=== PATIENT | male | born 1980 | race Caucasian/White ===

== ENCOUNTER 2020-08-19 19:45 | Emergency (ER) | payer OTHER ==
[2020-08-19] MEDS ORDERED: XYLOCAINE 100 MG/5 ML ABBOJECT IV ONE ×2 (20:17→20:32)
[2020-08-19 20:21] LABS: Absolute Neutrophil Ct (ANC) 7.84 (1.4-6.9); BASOPHIL % 0.5 % (0.0-0.4); Basophil (Absolute #) 0.06 (0-0.4); Eosinophil % 0.6 % (0.00-5.0); Eosinophil (Absolute #) 0.08 (0-0.5); Hematocrit 45.4 % (42-50); Hemoglobin 15.4 gm/dl (12.5-18.0); Lymphocyte (Absolute #) 3.54 (1.0-4.6); Lymphocytes % 28.4 % (24.0-44.0); Mean Cell Volume 94.4 fl (78-100); Mean Corpuscular Hgb Concent. 33.9 g/dl (32-36); Mean Platelet Volume 9.6 fl (7.5-11.0); Monocyte (Absolute #) 0.93 (0.0-1.3); Monocytes % 7.5 % (0.0-12.0); Platelet Count 369 K/mm3 (150-450); Red Blood Count 4.81 M/mm3 (4.1-5.6); Red Cell Distribution Width 11.7 % (11.5-14.0); White Blood Count 12.5 K/mm3 (4.0-10.5)
[2020-08-19] MEDS ORDERED: Adenocard IV 6 MG/2 ML IV ONE ×4 (20:25→20:38)
[2020-08-19 20:46] LABS: ALBUMIN 4.4 g/dL (3.5-5.0); ALKALINE PHOSPHATASE 85 U/L (38-126); ANION GAP 10.2 MEQ/L (5-15); BLOOD UREA NITROGEN 22 mg/dL (9-20); CHLORIDE 96 mmol/L (98-107); Calcium 9.3 mg/dL (8.4-10.2); Carbon Dioxide 33 mmol/L (22-30); Creatinine 1 1.13 mg/dL (0.66-1.25); EST GLOMERULAR FILTRATION RATE > 60.0 ML/MIN; ETHYL ALCOHOL < 10 mg/dL (0-10); Glucose 115 mg/dL (74-106); MAGNESIUM 2.1 mg/dL (1.6-2.3); NT PRO BNP 19.5 pg/mL (0-450); Potassium 3.1 mmol/L (3.5-5.1); SGOT/AST 24 U/L (17-59); SGPT/ALT 16 U/L (0-50); SODIUM 137 mmol/L (137-145); Total Protein 7.5 g/dL (6.3-8.2)
--- NOTE | 2020-08-19 21:53 | ERPHSYRPT ---
- History of Present Illness Time Seen by Provider: 08/19/20 20:10 Historian: patient Exam Limitations: no limitations Patient Subjective Stated Complaint: chest pressure radiating to back x 30 mins Triage Nursing Assessment: Chest presssure radiating to back x 30 mins. Rated 6/10. EKG shows sinus tach at a rate of 180. Skin PWD, no diaphesis noted. BP 131/80. Physician History: Patient is a 60-year-old male presents to our ED with complaints of chest pressure rating to his back. Symptoms started prior to arrival. Pain rated 6 out of 10. No associated nausea vomiting or diaphoresis. Patient denies history of the same. No trauma. No fever. Patient denies Covid exposure. Patient has a history of hypertension. Otherwise no other past medical history. Timing/Duration: today Activities at Onset: none Quality: pressure Location: substernal Chest Pain Radiation: back Severity of Pain-Max: moderate Severity of Pain-Current: mild Modifying Factors: Improves With: nothing Associated Symptoms: denies symptoms Prior Chest Pain/Cardiac Workup: no prior chest pain Nitro Today/Relief: no nitro taken today Aspirin Treatment Today: no aspirin today Allergies/Adverse Reactions: No Known Drug Allergies Allergy (Unverified 08/19/20 20:12) Hx Tetanus, Diphtheria Vaccination/Date Given: No Hx Influenza Vaccination/Date Given: No Hx Pneumococcal Vaccination/Date Given: No Travel Risk - International Travel Have you traveled outside of the country in past 3 weeks: No - Review of Systems Constitutional: No Symptoms, No Fever, No Chills Eyes: No Symptoms Ears, Nose, & Throat: No Symptoms Respiratory: No Symptoms, No Cough, No Dyspnea Cardiac: No Symptoms, No Chest Pain, No Edema, No Syncope Abdominal/Gastrointestinal: No Symptoms, No Abdominal Pain, No Nausea, No Vomiting, No Diarrhea Genitourinary Symptoms: No Symptoms, No Dysuria Musculoskeletal: No Symptoms, No Back Pain, No Neck Pain Skin: No Symptoms, No Rash Neurological: No Symptoms, No Dizziness, No Focal Weakness, No Sensory Changes Psychological: No Symptoms Endocrine: No Symptoms Hematologic/Lymphatic: No Symptoms Immunological/Allergic: No Symptoms All Other Systems: Reviewed and Negative - Past Medical History Pertinent Past Medical History: No - Past Surgical History Past Surgical History: No - Social History Smoking Status: Never smoker Exposure to second hand smoke: No Drug Use: none Patient Lives Alone: No - Nursing Vital Signs Nursing Vital Signs: Initial Vital Signs Temperature 97.8 F 08/19/20 20:04 Pulse Rate 180 H 08/19/20 20:04 Respiratory Rate 20 08/19/20 20:04 Blood Pressure 131/70 08/19/20 20:04 O2 Sat by Pulse Oximetry 100 08/19/20 20:04 Pain Scale Pain Intensity 0 - Physical Exam General Appearance: no apparent distress, alert Eye Exam: PERRL/EOMI, eyes nml inspection Ears, Nose, Throat Exam: normal ENT inspection, moist mucous membranes Neck Exam: normal inspection, non-tender, supple, full range of motion Respiratory Exam: normal breath sounds, lungs clear, No respiratory distress Cardiovascular Exam: other (EKG reveals what appears to be a wide-complex tachycardia at a rate of 180.) Gastrointestinal/Abdomen Exam: soft, No tenderness, No mass Back Exam: normal inspection, No CVA tenderness, No vertebral tenderness Extremity Exam: normal inspection, normal range of motion Neurologic Exam: alert, oriented x 3, cooperative, normal mood/affect, sensation nml, No motor deficits Skin Exam: normal color, warm, dry SpO2 Interpretation: normal SpO2: 100 O2 Delivery: Room Air - Course Nursing assessment & vital signs reviewed: Yes EKG Interpreted by Me: RATE (180), Sinus Tach, NORMAL AXIS, NORMAL INTERVALS (wide complex tachycardia) - Radiology Exams Chest X-ray Interpretation: Teleradiologist Report (Lungs are clear. Bony thorax intact. Negative chest x-ray.) Ordered Tests: Active Orders 24 hr Category Date Time Status Director Of Public Safety STAT Care 08/19/20 20:02 Active EKG-ER Only STAT Care 08/19/20 20:02 Active IV Insertion STAT Care 08/19/20 20:02 Active Pulse Oximetry (ED) STAT Care 08/19/20 20:02 Active CHEST 1 VIEW (PORTABLE) Stat Exams 08/19/20 20:02 Taken CBC W DIFF Stat Lab 08/19/20 20:15 Completed CMP Stat Lab 08/19/20 20:15 Completed D-DIMER QUANTITATIVE Stat Lab 08/19/20 20:15 Completed ETHYL ALCOHOL Stat Lab 08/19/20 20:15 Completed MAGNESIUM Stat Lab 08/19/20 20:15 Completed NT PRO BNP Stat Lab 08/19/20 20:15 Completed TROPONIN Q3H Lab 08/19/20 20:15 Completed TROPONIN Q3H Lab 08/19/20 23:15 Ordered TROPONIN Q3H Lab 08/20/20 02:15 Ordered TROPONIN Q3H Lab 08/20/20 05:15 Ordered TROPONIN Q3H Lab 08/20/20 08:15 Ordered TSH [TSH, 3RD Generation] Stat Lab 08/19/20 20:15 Completed UA W/RFX UR CULTURE Stat Lab 08/19/20 20:02 Ordered Urine Triage Profile Stat Lab 08/19/20 20:02 Ordered Medication Summary Discontinued Medications Generic Name Dose Route Start Last Admin Trade Name Freq PRN Reason Stop Dose Admin Adenosine Confirm 08/19/20 20:35 Adenocard Iv 6 Mg/2 Ml Administered 08/19/20 20:36 Dose 6 mg IV .STK-MED ONE Adenosine Confirm 08/19/20 20:38 Adenocard Iv 6 Mg/2 Ml Administered 08/19/20 20:39 Dose 12 mg IV .STK-MED ONE Lidocaine HCl 50 mg 08/19/20 20:17 Xylocaine 100 Mg/5 Ml Abboject IV 08/19/20 20:18 STAT ONE Lab/Rad Data: Laboratory Result Diagrams 08/19/20 20:15 08/19/20 20:15 Laboratory Results 08/19/20 08/19/20 08/19/20 Range/Units 20:15 20:15 20:15 WBC (4.0-10.5) K/mm3 RBC (4.1-5.6) M/mm3 Hgb (12.5-18.0) gm/dl Hct (42-50) % MCV (78-100) fl MCH (26-32) pg MCHC (32-36) g/dl RDW (11.5-14.0) % Plt Count (150-450) K/mm3 MPV (7.5-11.0) fl Gran % (36.0-66.0) % Eos # (Auto) (0-0.5) Absolute Lymphs (auto) (1.0-4.6) Absolute Monos (auto) (0.0-1.3) Lymphocytes % (24.0-44.0) % Monocytes % (0.0-12.0) % Eosinophils % (0.00-5.0) % Basophils % (0.0-0.4) % Absolute Granulocytes (1.4-6.9) Basophils # (0-0.4) D-Dimer < 215 L (215-500) ng/mL Sodium (137-145) mmol/L Potassium (3.5-5.1) mmol/L Chloride (98-107) mmol/L Carbon Dioxide (22-30) mmol/L Anion Gap (5-15) MEQ/L BUN (9-20) mg/dL Creatinine (0.66-1.25) mg/dL Estimated GFR ML/MIN Glucose (74-106) mg/dL Calcium (8.4-10.2) mg/dL Magnesium (1.6-2.3) mg/dL Total Bilirubin (0.2-1.3) mg/dL AST (17-59) U/L ALT (0-50) U/L Alkaline Phosphatase (38-126) U/L Troponin I < 0.012 (0.000-0.034) ng/mL NT-Pro-B Natriuret Pep (0-450) pg/mL Serum Total Protein (6.3-8.2) g/dL Albumin (3.5-5.0) g/dL TSH 3rd Generation 6.230 H (0.47-4.68) mIU/L Ethyl Alcohol (0-10) mg/dL 08/19/20 08/19/20 Range/Units 20:15 20:15 WBC 12.5 H (4.0-10.5) K/mm3 RBC 4.81 (4.1-5.6) M/mm3 Hgb 15.4 (12.5-18.0) gm/dl Hct 45.4 (42-50) % MCV 94.4 (78-100) fl MCH 32.0 (26-32) pg MCHC 33.9 (32-36) g/dl RDW 11.7 (11.5-14.0) % Plt Count 369 (150-450) K/mm3 MPV 9.6 (7.5-11.0) fl Gran % 63.0 (36.0-66.0) % Eos # (Auto) 0.08 (0-0.5) Absolute Lymphs (auto) 3.54 (1.0-4.6) Absolute Monos (auto) 0.93 (0.0-1.3) Lymphocytes % 28.4 (24.0-44.0) % Monocytes % 7.5 (0.0-12.0) % Eosinophils % 0.6 (0.00-5.0) % Basophils % 0.5 (0.0-0.4) % Absolute Granulocytes 7.84 H (1.4-6.9) Basophils # 0.06 (0-0.4) D-Dimer (215-500) ng/mL Sodium 137 (137-145) mmol/L Potassium 3.1 L (3.5-5.1) mmol/L Chloride 96 L (98-107) mmol/L Carbon Dioxide 33 H (22-30) mmol/L Anion Gap 10.2 (5-15) MEQ/L BUN 22 H (9-20) mg/dL Creatinine 1.13 (0.66-1.25) mg/dL Estimated GFR > 60.0 ML/MIN Glucose 115 H (74-106) mg/dL Calcium 9.3 (8.4-10.2) mg/dL Magnesium 2.1 (1.6-2.3) mg/dL Total Bilirubin 0.40 (0.2-1.3) mg/dL AST 24 (17-59) U/L ALT 16 (0-50) U/L Alkaline Phosphatase 85 (38-126) U/L Troponin I (0.000-0.034) ng/mL NT-Pro-B Natriuret Pep 19.5 (0-450) pg/mL Serum Total Protein 7.5 (6.3-8.2) g/dL Albumin 4.4 (3.5-5.0) g/dL TSH 3rd Generation (0.47-4.68) mIU/L Ethyl Alcohol < 10 (0-10) mg/dL - Progress Progress: improved Air Movement: good Progress Note: 08/19/20 21:59 Initial EKG revealed a wide-complex tachycardia. Case discussed with Dr. Hoover who reviewed the EKG. He initially advised 50 mg of lidocaine. However this did not improve patient's heart rate. He then advised adenosine. 6 mg administered. No improvement. 12 mg yielded cardioversion. Heart rate down to 106. Repeat EKG revealed diffuse ST segment depression. Patient did not have any chest pain. Troponin normal. Potassium 3.1. Potassium replaced. TSH reveals hypothyroidism. Dr. Hoover advised transfer to facility with electro physiology. Case discussed with of cardiology who accepted transfer. Dr. Gonzalez hospitalist accepted transfer. Plan of care discussed with patient. He agrees to transfer to [facility] for further evaluation and treatment. Patient reassessed. Patient stable. No complaints at this time. We will continue to monitor. Blood Culture(s) Obtained: No Antibiotics given: No Counseled pt/family regarding: lab results, diagnosis, need for follow-up, rad results - Departure Departure Disposition: Transfer Clinical Impression: SVT (supraventricular tachycardia), Hypokalemia, Hypothyroidism Condition: Stable Critical Care Time: No Referrals: STACIE DALAL MD [Primary Care Provider] -
[2020-08-19] MEDS ORDERED: Klor Con 10 MEQ PO ONE ×2 (21:58→22:09)
[2020-08-19 22:01] VITALS: O2SAT 100
[2020-08-19 22:05] VITALS: BP 153/85; PULSE 101
--- NOTE | 2020-08-20 08:36 | XRAY ---
Indication: Chest pain. Comparison: July 06, 2019. Portable apical lordotic chest underinflated and clear. Heart is not enlarged. Bony thorax intact. Impression: Nonacute underinflated chest.
== END 2020-08-19 22:35 | disposition short-term general hospital (02) ==
LOC: ED 19:45
DX: I47.1 Supraventricular tachycardia (principal); E87.6 Hypokalemia; E03.9 Hypothyroidism, unspecified; I10 Essential (primary) hypertension
CPT/HCPCS: 36000; 36415; 71045; 80053; 83735; 83880; 84443; 84484; 85025; 85379; 93005; 93041; 94760; 96374; 96375; 96376; 99285; 99291; G0480; 80307; J0153; J2001; A9270-GY

== ENCOUNTER 2021-03-17 08:18 | Emergency (ER) | payer OTHER ==
[2021-03-17] MEDS ORDERED: Adacel Vial IM ONE ×2 (08:54→09:11)
--- NOTE | 2021-03-17 09:00 | ERPHSYRPT ---
- History of Present Illness Source: patient Exam Limitations: no limitations Patient Subjective Stated Complaint: was working on car yesterday and laceratied right 3rd digit . Triage Nursing Assessment: pt has avlusion laceration to righe 3rd digit Physician History: Patient is a 40-year-old male presents to our emergency department for evaluation of avulsion injury to the distal tip of the right long finger. Injury occurred yesterday. Patient was working on his daughter's car using a puller to remove a jeromy. Patient states it took some time for the bleeding to stop. However this morning the bleeding recurred patient became concerned and came to our ED. Patient is not on blood thinners. History of hypertension. No other injuries reported. Tetanus is not up-to-date. We will update patient's tetanus today. Pain is well controlled at this time. Patient otherwise healthy. He voices no other complaints or concerns at this time. Timing/Duration: yesterday Severity: mild Modifying Factors: Improves With: nothing Associated Symptoms: denies symptoms Allergies/Adverse Reactions: No Known Drug Allergies Allergy (Verified 03/17/21 08:31) Home Medications: Losartan Potassium 100 mg PO DAILY 08/19/20 [History] Triamterene/Hydrochlorothiazid [Triamterene-Hctz 75-50 mg Tab] 50 mg PO DAILY 08/19/20 [History] Diltiazem HCl [Dilt-Xr] 1 ea DAILY 03/17/21 [History] Hx Tetanus, Diphtheria Vaccination/Date Given: No Hx Influenza Vaccination/Date Given: No Hx Pneumococcal Vaccination/Date Given: No Immunizations Up to Date: Yes Travel Risk - International Travel Have you traveled outside of the country in past 3 weeks: No - Coronavirus Screening Are you exhibiting any of the following symptoms?: No Close contact with a COVID-19 positive Pt in past 14-21 Days: No - Vaccine Status Have you recieved a Covid-19 vaccination: No - Review of Systems Constitutional: No Symptoms, No Fever, No Chills Eyes: No Symptoms Ears, Nose, & Throat: No Symptoms Respiratory: No Symptoms, No Cough, No Dyspnea Cardiac: No Symptoms, No Chest Pain, No Edema, No Syncope Abdominal/Gastrointestinal: No Symptoms, No Abdominal Pain, No Nausea, No Vomiting, No Diarrhea Genitourinary Symptoms: No Symptoms, No Dysuria Musculoskeletal: No Symptoms, No Back Pain, No Neck Pain Skin: No Symptoms, No Rash Neurological: No Symptoms, No Dizziness, No Focal Weakness, No Sensory Changes Psychological: No Symptoms Endocrine: No Symptoms Hematologic/Lymphatic: No Symptoms Immunological/Allergic: No Symptoms All Other Systems: Reviewed and Negative - Past Medical History Pertinent Past Medical History: Yes Cardiac History: Arrhythmia, Hypertension - Past Surgical History Past Surgical History: Yes Cardiac: Cardiac Catheterization Other Surgical History: ablasion - Social History Smoking Status: Never smoker Exposure to second hand smoke: No Drug Use: none Patient Lives Alone: No - Nursing Vital Signs Nursing Vital Signs: Pain Scale Pain Intensity 4 - Physical Exam General Appearance: no apparent distress, alert Eye Exam: PERRL/EOMI, eyes nml inspection Ears, Nose, Throat Exam: normal ENT inspection, TMs normal, pharynx normal, moist mucous membranes Neck Exam: normal inspection, non-tender, supple, full range of motion Respiratory Exam: normal breath sounds, lungs clear, No respiratory distress Cardiovascular Exam: regular rate/rhythm, normal heart sounds, normal peripheral pulses Gastrointestinal/Abdomen Exam: soft, normal bowel sounds, No tenderness, No mass Back Exam: normal inspection, normal range of motion, No CVA tenderness, No vertebral tenderness Extremity Exam: normal inspection, normal range of motion, pelvis stable, other (Distal tip of right long finger has a superficial avulsion. No indication for suture repair. Local wound care only. Extremities neurovascular intact distally. Compartments are soft. Cap refill less than 2 seconds.) Neurologic Exam: alert, oriented x 3, cooperative, normal mood/affect, sensation nml, No motor deficits Skin Exam: normal color, warm, dry, No rash Lymphatic Exam: No adenopathy SpO2 Interpretation: normal O2 Delivery: Room Air - Course Nursing assessment & vital signs reviewed: Yes Ordered Tests: Medication Summary Discontinued Medications Generic Name Dose Route Start Last Admin Trade Name Freq PRN Reason Stop Dose Admin Diphtheria/Tetanus/Acell Pertussis 0.5 ml 03/17/21 08:54 Adacel Vial IM 03/17/21 08:55 .ONCE ONE - Progress Progress: improved Progress Note: Tetanus updated. Wound irrigated and dressed by RN. Patient agrees to follow- up with primary care doctor within 48 hours for reevaluation. No indication for antibiotics at this time. Will discharge home. Portions of this note were created with voice recognition technology. There may be grammatical, spelling, punctuation or sound alike errors 03/17/21 09:01 Counseled pt/family regarding: lab results, diagnosis, need for follow-up - Departure Departure Disposition: Home Clinical Impression: skin avulsion Rt. middle finger Condition: Stable Critical Care Time: No Referrals: STACIE DALAL MD [Primary Care Provider] - Additional Instructions: Discharge/Care Plan RADHA CARABALLO was seen on 03/17/21 in the Emergency Room. The patient was counseled regarding Diagnosis,Lab results, Imaging studies, need for follow up and when to return to the Emergency Room. Prescriptions given: Discharge Note I have spoken with the patient and/or caregivers. I have explained the patient's condition, diagnosis and treatment plan based on the information available to me at this time. I have answered the patient's and/or caregiver's questions and addressed any concerns. The patient and/or caregivers have as good understanding of the patient's diagnosis, condition and treatment plan as can be expected at this point. The vital signs have been stable. The patient's condition is stable and appropriate for discharge from the emergency department. The patient will pursue further outpatient evaluation with the primary care physician or other designated or consulting physician as outlined in the discharge instructions. The patient and/or caregivers are agreeable to this plan of care and follow-up instructions have been explained in detail. The patient and/or caregivers have received these instruction. The patient/and or caregivers are aware that any significant change in condition or worsening of symptoms should prompt an immediate return to this or the closest emergency department or call 911.
[2021-03-17 09:57] VITALS: PULSE 70; O2SAT 98
== END 2021-03-17 09:57 | disposition home or self-care (01) ==
LOC: ED 08:18
DX: S61.212A Laceration without foreign body of right middle finger without damage to nail, initial encounter (principal); W45.8XXA Other foreign body or object entering through skin, initial encounter; Y93.89 Activity, other specified; Y92.89 Other specified places as the place of occurrence of the external cause; Y99.8 Other external cause status; I10 Essential (primary) hypertension
CPT/HCPCS: 90471; 90715; 99283

== ENCOUNTER 2022-10-20 14:52 | Emergency (ER) | payer OTHER ==
--- NOTE | 2022-10-20 15:19 | XRAY ---
Indication: Left facial trauma. Multiple contiguous axial images obtained through the facial bones. Sagittal and coronal reformatted images obtained. Comparison: None Mild left facial soft tissue swelling/laceration with at least 4 tiny subcutaneous foreign bodies, largest 3 mm and smallest 1 mm. Elsewhere no acute fracture, suspicious bony lesions, or radiopaque foreign body. Orbits including roof, spencer, floors intact. Minimal mucosal thickening floor left maxillary sinus. Pain is sinuses and nasal passages are clear. Very minimal nasal septal deviation to the right. Cervicalspineintact.Remaining visualized noncontrasted soft tissues including base of brain are unremarkable. Impression: Mild left facial soft tissue swelling/laceration with tiny subcutaneous foreign bodies as detailed. Remaining CT facial bones negative.
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
[2022-10-20] MEDS ORDERED: Rocephin 1000 MG INJ IM ONE (16:02)
[2022-10-20] MEDS ORDERED: Rocephin 1000 MG INJ ONE (16:11)
[2022-10-20] MEDS ORDERED: XYLOCAINE 1% HCL 20 ML MDV ONE (16:11)
[2022-10-20 16:43] VITALS: O2SAT 98
[2022-10-20 16:44] VITALS: BP 127/68; PULSE 72
== END 2022-10-20 17:00 | disposition short-term general hospital (02) ==
LOC: ED 14:52
DX: S01.422A Laceration with foreign body of left cheek and temporomandibular area, initial encounter (principal); W31.1XXA Contact with metalworking machines, initial encounter; Y99.0 Civilian activity done for income or pay; I10 Essential (primary) hypertension; Z79.899 Other long term (current) drug therapy; Z28.310 Unvaccinated for COVID-19
CPT/HCPCS: 70486; 96372; 99284; J0696